=== PATIENT | female | born 1965 | race Native Hawaiian/Other Pacific Islander ===

== ENCOUNTER 2022-02-16 09:23 | Outpatient (CLI) | payer OTHER | END 2022-02-16 18:53 | disposition home or self-care (01) | LOC: RAD 09:23 | PROVIDERS: ATTEND Internal Medicine Medical Oncology | DX: C50.911 Malignant neoplasm of unspecified site of right female breast (principal); E55.9 Vitamin D deficiency, unspecified; M81.0 Age-related osteoporosis without current pathological fracture ==

== ENCOUNTER 2022-04-04 11:19 | Outpatient (CLI) | payer OTHER ==
[2022-04-04 12:01] LABS: PLATELET COUNT 225 K/uL (152-353)
[2022-04-04 12:09] LABS: POTASSIUM 4.2 mmol/L (3.6-5.2)
== END 2022-04-04 20:21 | disposition home or self-care (01) ==
LOC: LABW 11:19
PROVIDERS: ATTEND Plastic Surgery
DX: Z42.1 Encounter for breast reconstruction following mastectomy (principal); Z85.3 Personal history of malignant neoplasm of breast
CPT/HCPCS: 80053; 85027; 87535; 93005; G0432